=== PATIENT | female | born 1965 | race Caucasian/White ===

== ENCOUNTER 2016-10-23 14:13 | Emergency (ER) | payer OTHER ==
[~2016-10-23] VITALS: Ht 157.5 cm; Wt 112.5 kg
--- NOTE | 2016-10-23 15:32 | ED NECK/BACK PAIN COMPLAINT ---
History of Present Illness General Chief Complaint: Low Back Pain/Injury Stated Complaint: BACK PAIN, LEFT HIP PAIN, Source: patient Exam Limitations: no limitations Vital Signs & Intake/Output Vital Signs & Intake/Output Vital Signs Date Time Temp Pulse Resp B/P Pulse O2 O2 Flow FiO2 Ox Delivery Rate 10/23 1827 99.0 78 20 161/70 96 Room Air ED Intake and Output 10/24 0000 10/23 1200 Intake Total Output Total Balance Patient 248 lb Weight Allergies Coded Allergies: No Known Allergies (10/23/16) Reconcile Medications Methylprednisolone. (Medrol) 4 MG TAB.DS.PK 1 DP PO AD back pain 6 on day 1 then reduce by one tablet daily until gone Oxycodone HCl 5 MG TABLET 1-2 TAB PO BIDP PRN break through pain Triage Note: PT TO ED C/O LOWER BACK PAIN RADIATING DOWN LEFT LEG. PT IS ON PAIN MANAGEMENT,TAKES PERCOCET 10MG BID, HAS NOT BEEN HELPING WITH CURRENT BACK PAIN. HAS BEEN SEEING PCP, WAS GIVEN BACK BRACE AND FLEXERIL. Triage Nurses Notes Reviewed? yes Onset: Abrupt Duration: week(s): (1), intermittent Location: lumbar spine Radiation: upper legs, lower legs HPI: 51-year-old female comes into emergency room with complaints of low back pain. Patient reports that one week ago she was bending over and she felt the pain in her back. Since then she's been getting sharp pains to her lower back intermittently. She reports that her left leg feels very heavy at times and has given out completely to the point where she can't even lift it. Pain is sharp. It wraps around her back into her groin and down the lateral aspect of her leg. She also complains of some intermittent right-sided back pain as well. Denies any falls. Denies any other trauma that she is aware of. Denies any urinary bowel dysfunction. Denies any prior history of back surgery or any other type of back issues. (LAKISHA EVANS,YVES) Past History Travel History Traveled to [place] past 21 day No Medical History Any Pertinent Medical History? 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 No (YVES GOODE) Review of Systems Review of Systems Constitutional: Reports: no symptoms. Eyes: Reports: no symptoms. Ears, Nose, Throat, Mouth: Reports: no symptoms. Respiratory: Reports: no symptoms. Cardiovascular: Reports: no symptoms. Gastrointestinal/Abdominal: Reports: no symptoms. Musculoskeletal: Reports: see HPI. Skin: Reports: no symptoms. Neurological/Psychological: Reports: no symptoms. All Other Systems: Reviewed and Negative (YVES GOODE) Physical Exam Physical Exam General Appearance: well developed/nourished, mild distress Head: atraumatic Eyes: Bilateral: normal appearance, EOMI. Ears, Nose, Throat, Mouth: hearing grossly normal, moist mucous membrane Neck: normal inspection, full range of motion Respiratory: normal breath sounds, no respiratory distress Cardiovascular: regular rate/rhythm Back: normal inspection, normal range of motion Extremities: normal range of motion Motor: Deficit L4 Right: No Deficit L4 Left: No Deficit L5 Right: No Deficit L5 Left: No Deficit S1 Right: No Deficit S1 Right: No Neurologic/Psych: awake, alert, oriented x 3, normal mood/affect Skin: intact, normal color, warm/dry (YVES GOODE) Progress Differential Diagnosis: herniated disc, myofascial strain, pyelo/UTI, sciatica, spinal cord inj, thoracic outlet syn, T/L spine injury, ureterolithiasis Plan of Care: Orders Procedure Date/time Status MRI-LUMBAR SPINE 10/23 1530 Active Diagnostic Imaging: Viewed by Me: MRI. Discussed w/RAD: MRI. Radiology Impression: SERVICE DATE: 10/23/16 EXAM TYPE: MRI - MRI-LUMBAR SPINE EXAMINATION: MR LUMBAR SPINE WITHOUT CONTRAST CLINICAL INFORMATION: Low back pain with motor weakness. Left side giving out. COMPARISON: None TECHNIQUE: MRI of the lumbar spine without contrast was obtained using routine sequences. FINDINGS: VERTEBRAL BODIES AND PARASPINAL STRUCTURES: Vertebral bodies are normally aligned. There is multilevel degenerative disc changes most prominent at the L2-L3 and L3-L4 level with associated reactive endplate changes. There is slight depression of the superior endplate of L1 perhaps related to an old compression fracture or prominent Schmorl's node. No fracture. Surrounding soft tissues are normal. CONUS MEDULLARIS AND CAUDA EQUINA: Conus at the level of L1. Cauda equina normal. SPINAL LEVELS: L1-L2: There is generalized mild bulging of the disc with a concomitant small to moderate-sized right paracentral disc protrusion indenting on the anterior lateral thecal sac. The facets are normal with mild hypertrophy ligamentum flavum. These degenerative changes result in mild narrowing the right neural foramina mild narrowing of the right central canal. The left neural foramina is normal. L2-L3: There is a generalized bulging of the disc and loss of disc height. There is a concomitant broad-based posterior disc protrusion with additional left paracentral disc protrusion and caudal extrusion/migration of the disc almost to the level of the L3-L4 disc space. The disc extrusion extends craniocaudal over distance of approximately 2 cm with a fragment measuring up to 12 mm transverse and 8 mm AP. This protrusion /extrusion contributes to narrowing of the central canal and indents or displaces the traversing L3 nerve root related to narrowing of the left lateral recess. There is concomitant moderate hypertrophic facet arthrosis with hypertrophy ligamentum flavum. In combination these degenerative changes result in moderate narrowing the central canal with compression and displacement of the traversing left L3 nerve root related to disc protrusion\E\extrusion. Additional mild narrowing of the neural foramina secondary to generalized bulging of the disc. L3-L4: Generalized bulging of the disc and slight loss in disc height along with the moderate hypertrophic degenerative changes of the facet joints and hypertrophy ligamentum flavum. In combination these findings result in mild- to-moderate narrowing the central canal and mild narrowing the neural foramina bilaterally. L4-L5: There is mild hypertrophy of the ligamentum flavum and facet arthrosis. Minimal bulging of the disc. Overall mild narrowing the central canal. The neural foramina are normal. L5-S1: There is mild bilateral facet arthrosis and hypertrophy ligamentum flavum. There is minimal right foraminal disc bulge not definitely indenting on the exiting nerve root. The left neural foramina is normal. IMPRESSION: Multilevel spondylosis of lumbar sacral spine as detailed per level above. At L2-L3 along with generalized bulging of the disc and there is a left paracentral disc protrusion with caudal extrusion resulting in mass effect on the traversing left L3 nerve root. Additional degenerative changes result in moderate narrowing of the central canal and mild narrowing of the neural foramina bilaterally. DICTATED BY: PATIENCE BARKER MD DATE/TIME DICTATED:10/23/161821 [facility] COORDINATOR:ZHANE DATE/TIME TRANSCRIBED:1821 Comments: Patient clinically looks well. Has no current motor deficits. Referred to orthopedic doctor for further evaluation. Start on Medrol Dosepak. Patient understands and agrees with plan of care. (YVES GOODE) Departure Departure Disposition: HOME OR SELF CARE Condition: Stable Clinical Impression Primary Impression: Lumbar disc herniation Referrals: PARI MACIAS,JACQUELYN ROCK MD,DOMINICK (PCP/Family) Additional Instructions: Take Medrol Dosepak as prescribed. Take Percocet for pain. Follow-up with neurosurgeon provided. Return if any concerns worsening symptoms. Please go over all results of today's visit with your primary care doctor. Contact your primary care doctor to let them know you were here in the emergency room. There may be nonspecific findings which may not be related to your visit today here in the emergency room but may require further evaluation and chronic monitoring by your primary care doctor. If you had a laceration today the chance of foreign body always remains. You should follow-up with your primary care doctor for recheck in 3-5 days for a wound check. If you had an x-ray done there is a chance that a fracture could have been missed on initial read and you should follow-up with your primary care doctor for repeat x-rays if symptoms persist. If your blood pressure was elevated here in the emergency room please have rechecked by her primary care doctor within the next 48 hours by your primary care doctor. If you were prescribed a narcotic here in the emergency room or any type of controlled substances you're not allowed to drive while taking this medication or operate any type of heavy machinery. Narcotics can make you feel lightheaded dizziness nausea and can cause constipation. You may need to forklift picker a stool softener. Thank you for choosing [facility] emergency room. Please return to the emergency room immediately if you have any other concerns worsening of symptoms. Departure Forms: Customer Survey General Discharge Information Prescriptions: Current Visit Scripts Oxycodone HCl 1-2 TAB PO BIDP PRN break through pain #15 TAB Methylprednisolone. (Medrol) 1 DP PO AD #1 DP 6 on day 1 then reduce by one tablet daily until gone (YVES GOODE) Resident Co-Sign Statement Statement: ED Attending supervision documentation- [] I saw and evaluated the patient. I have also reviewed all the pertinent lab results and diagnostic results. I agree with the findings and the plan of care as documented in the Resident's documentation. [X] I have reviewed the ED Record and agree with the Resident's documentation. [] Additions or exceptions (if any) to the Resident's note and plan are summarized below: [] (VISH ZUNIGA DO
[2016-10-23 18:27] VITALS: BP 161/70
--- NOTE | 2016-10-23 18:51 | MRI REPORT ---
EXAMINATION: MR LUMBAR SPINE WITHOUT CONTRAST CLINICAL INFORMATION: Low back pain with motor weakness. Left side giving out. COMPARISON: None TECHNIQUE: MRI of the lumbar spine without contrast was obtained using routine sequences. FINDINGS: VERTEBRAL BODIES AND PARASPINAL STRUCTURES: Vertebral bodies are normally aligned. There is multilevel degenerative disc changes most prominent at the L2-L3 and L3-L4 level with associated reactive endplate changes. There is slight depression of the superior endplate of L1 perhaps related to an old compression fracture or prominent Schmorl's node. No fracture. Surrounding soft tissues are normal. CONUS MEDULLARIS AND CAUDA EQUINA: Conus at the level of L1. Cauda equina normal. SPINAL LEVELS: L1-L2: There is generalized mild bulging of the disc with a concomitant small to moderate-sized right paracentral disc protrusion indenting on the anterior lateral thecal sac. The facets are normal with mild hypertrophy ligamentum flavum. These degenerative changes result in mild narrowing the right neural foramina mild narrowing of the right central canal. The left neural foramina is normal. L2-L3: There is a generalized bulging of the disc and loss of disc height. There is a concomitant broad-based posterior disc protrusion with additional left paracentral disc protrusion and caudal extrusion/migration of the disc almost to the level of the L3-L4 disc space. The disc extrusion extends craniocaudal over distance of approximately 2 cm with a fragment measuring up to 12 mm transverse and 8 mm AP. This protrusion /extrusion contributes to narrowing of the central canal and indents or displaces the traversing L3 nerve root related to narrowing of the left lateral recess. There is concomitant moderate hypertrophic facet arthrosis with hypertrophy ligamentum flavum. In combination these degenerative changes result in moderate narrowing the central canal with compression and displacement of the traversing left L3 nerve root related to disc protrusion\E\extrusion. Additional mild narrowing of the neural foramina secondary to generalized bulging of the disc. L3-L4: Generalized bulging of the disc and slight loss in disc height along with the moderate hypertrophic degenerative changes of the facet joints and hypertrophy ligamentum flavum. In combination these findings result in [id number] narrowing the central canal and mild narrowing the neural foramina bilaterally. L4-L5: There is mild hypertrophy of the ligamentum flavum and facet arthrosis. Minimal bulging of the disc. Overall mild narrowing the central canal. The neural foramina are normal. L5-S1: There is mild bilateral facet arthrosis and hypertrophy ligamentum flavum. There is minimal right foraminal disc bulge not definitely indenting on the exiting nerve root. The left neural foramina is normal. IMPRESSION: Multilevel spondylosis of lumbar sacral spine as detailed per level above. At L2-L3 along with generalized bulging of the disc and there is a left paracentral disc protrusion with caudal extrusion resulting in mass effect on the traversing left L3 nerve root. Additional degenerative changes result in moderate narrowing of the central canal and mild narrowing of the neural foramina bilaterally.
[2016-10-23] MEDS ORDERED: OXYCODONE HCL5 M1 PO (18:55)
[2016-10-23] MEDS ORDERED: MEDROL4 M2 PO (18:55)
== END 2016-10-23 19:20 ==
LOC: ERH 14:13
DX: M51.26 Other intervertebral disc displacement, lumbar region (principal)
CPT/HCPCS: 72148